=== PATIENT | female | born 1985 | race Caucasian/White ===

== ENCOUNTER 2016-07-17 03:16 | Emergency (ER) | payer OTHER ==
[~2016-07-17] VITALS: Ht 170.2 cm; Wt 113.7 kg
[~2016-07-17 03:16] MED LIST: CLONAZEPAM0.5 MG PO; ENDOCET 5-3251 EACH PO; HYDROCODON-ACE1 EAC7 PO; IBUPROFEN800 MG PO; NORCO 5/3251 TABLET PO; PRENATAL TABLE1 EAC3 PO; VENLAFAXINE HCL75 M3 PO; ZOFRAN4 MG PO
[2016-07-17 03:19] VITALS: BP 138/81
[2016-07-17 03:48] LABS: HEMATOCRIT 34.1 % (36.0-46.0); MCHC 32.8 G/DL (30.0-36.0); MCV 85.3 FL (83-99); MEAN PLAT.VOLUME 9.3 uM^3 (9.5-12.4); PLATELET COUNT 274 K/uL (156-360); RBC DIS.WIDTH-CV 14.8 % (11.8-14.6); RBC DIS.WIDTH-SD 46.2 % (39-53); WHITE BLOOD COUNT 12.2 K/uL (4.1-10.2)
[2016-07-17 03:58] LABS: CHLORIDE 106 mEq/L (99-109); POTASSIUM 3.6 mEq/L (3.7-5.4); SODIUM 136 mEq/L (136-147)
[2016-07-17 04:01] LABS: GLUCOSE 98 mg/dL (70-99)
[2016-07-17 04:02] LABS: ANION GAP 10 MEQ/L (2-14)
[2016-07-17 04:03] LABS: TOTAL BILIRUBIN 0.2 mg/dL (0.0-1.0)
[2016-07-17 04:04] LABS: ALKALINE PHOSPHATASE 143 IU/L (3-129); GFR ESTIMATE (CALCULATED) > 59 mL/min/
[2016-07-17 04:05] LABS: UREA NITROGEN (BUN) 9 mg/dL (9-23)
[2016-07-17 04:11] LABS: ADD MIUA? YES; BILIRUBIN NEGATIVE; BLOOD SMALL; COLOR AMBER ((YELLOW)); GLUCOSE (STRIP) NEGATIVE; KETONES 5; LEUKOCYTES TRACE; NITRITE NEGATIVE; PROTEIN (STRIP) 100; SPECIFIC GRAVITY 1.027 (1.000-1.030); UROBILINOGEN 0.2 MG/DL (0.2-1.0)
[2016-07-17 04:13] LABS: QUANTITATIVE HCG 6068.9 MIU/ML
[2016-07-17 04:38] LABS: RED BLOOD CELLS 0-5 /HPF (0-5)
[2016-07-17 04:39] LABS: BACTERIA 1+ /HPF; EPITHELIAL CELLS 3+ /HPF; MUCUS 2+ /LPF; UCUL ADDED? NO
== END 2016-07-17 05:31 | disposition left against medical advice (07) ==
LOC: EME 03:16
DX: O26.92 Pregnancy related conditions, unspecified, second trimester (principal); Z53.21 Procedure and treatment not carried out due to patient leaving prior to being seen by health care provider; R11.10 Vomiting, unspecified; R19.7 Diarrhea, unspecified; R42 Dizziness and giddiness; Z3A.22 22 weeks gestation of pregnancy
CPT/HCPCS: 80053; 81003; 84702; 85027

== ENCOUNTER 2016-11-09 22:30 | Outpatient (CLI) | payer OTHER ==
[~2016-11-09] VITALS: Ht 170.2 cm; Wt 123.4 kg
[2016-11-09 22:50] VITALS: BP 116/59
[2016-11-10 00:31] LABS: ADD MIUA? YES; BILIRUBIN NEGATIVE; BLOOD SMALL; COLOR YELLOW ((YELLOW)); GLUCOSE (STRIP) NEGATIVE; KETONES NEGATIVE; LEUKOCYTES NEGATIVE; NITRITE NEGATIVE; PROTEIN (STRIP) NEGATIVE; SPECIFIC GRAVITY 1.009 (1.000-1.030); UROBILINOGEN 0.2 MG/DL (0.2-1.0)
[2016-11-10 00:38] LABS: BACTERIA RARE /HPF; EPITHELIAL CELLS RARE /HPF; MUCUS TRACE /LPF; RED BLOOD CELLS 0-5 /HPF (0-5); WHITE BLOOD CELLS 0-5 /HPF (0-5)
== END 2016-11-10 00:11 | disposition home or self-care (01) ==
LOC: LDRP-OP → 2WEST 22:31 → LDRP-OP 12-24 16:43
PROVIDERS: Advanced Practice Midwife
DX: O26.893 Other specified pregnancy related conditions, third trimester (principal); K62.89 Other specified diseases of anus and rectum; Z3A.38 38 weeks gestation of pregnancy
CPT/HCPCS: 59025; 81003; 87086; G0378

== ENCOUNTER 2016-11-17 07:23 | Inpatient (IN) | payer OTHER ==
[~2016-11-17] VITALS: Ht 170.2 cm; Wt 132.0 kg
[2016-11-17] VITALS (25 sets, daily range): BP systolic 90–141; BP diastolic 48–81
[2016-11-17 09:48] LABS: EOSINOPHIL (%) 0.9 % (0-5); EOSINOPHIL COUNT 0.1 K/uL (0-0.3); HEMATOCRIT 29.7 % (36.0-46.0); IMMATURE GRANULOCYTE (%) 0.6 % (0.0-0.7); IMMATURE GRANULOCYTE COUNT 0.1 K/uL; LYMPHOCYTE COUNT 1.2 K/uL (1.0-2.8); MCH 23.5 PG (29.0-34.0); MCHC 30.6 G/DL (30.0-36.0); MCV 76.7 FL (83-99); MEAN PLAT.VOLUME 10.8 uM^3 (9.5-12.4); MONOCYTE (%) 5.4 % (3-12); MONOCYTE COUNT 0.5 K/uL (0-0.8); PLATELET COUNT 226 K/uL (156-360); RBC DIS.WIDTH-CV 16.2 % (11.8-14.6); RBC DIS.WIDTH-SD 45.1 % (39-53); RED BLOOD COUNT 3.87 M/uL (3.80-5.20); WHITE BLOOD COUNT 8.8 K/uL (4.1-10.2)
[2016-11-18] VITALS (11 sets, daily range): BP systolic 108–155; BP diastolic 49–80
[2016-11-19 07:10] VITALS: BP 127/67
[2016-11-19 07:26] LABS: EOSINOPHIL (%) 1.6 % (0-5); EOSINOPHIL COUNT 0.2 K/uL (0-0.3); HEMATOCRIT 26.7 % (36.0-46.0); IMMATURE GRANULOCYTE (%) 0.5 % (0.0-0.7); IMMATURE GRANULOCYTE COUNT 0.1 K/uL; INSTRUMENT ABS NEUTROPHIL CT 6.9 K/uL; LYMPHOCYTE COUNT 1.6 K/uL (1.0-2.8); MCH 24.6 PG (29.0-34.0); MCHC 31.5 G/DL (30.0-36.0); MCV 78.3 FL (83-99); MEAN PLAT.VOLUME 10.9 uM^3 (9.5-12.4); MONOCYTE (%) 5.9 % (3-12); MONOCYTE COUNT 0.5 K/uL (0-0.8); NEUTROPHIL (%) 74.7 % (45-76); NEUTROPHIL COUNT 6.9 K/uL (1.8-6.4); PLATELET COUNT 204 K/uL (156-360); RBC DIS.WIDTH-CV 16.7 % (11.8-14.6); RBC DIS.WIDTH-SD 47.4 % (39-53); RED BLOOD COUNT 3.41 M/uL (3.80-5.20); WHITE BLOOD COUNT 9.2 K/uL (4.1-10.2)
[2016-11-19 14:05] VITALS: BP 165/74
== END 2016-11-19 18:55 | disposition home or self-care (01) | DRG 775 ==
LOC: LDRP-OP 07:23 → 2WEST 07:24 → LDRP-OP 22:21 → 2WEST 11-18 00:59 → LDRP-OP 12-24 00:24
PROVIDERS: Advanced Practice Midwife; Obstetrics & Gynecology Obstetrics
PROC: 10907ZC Drainage of Amniotic Fluid, Therapeutic from Products of Conception, Via Natural or Artificial Opening (ICD-10-PCS; principal; 2016-11-17)
PROC: 3E0P7GC Introduction of Other Therapeutic Substance into Female Reproductive, Via Natural or Artificial Opening (ICD-10-PCS; principal; 2016-11-17)
PROC: 00HU33Z Insertion of Infusion Device into Spinal Canal, Percutaneous Approach (ICD-10-PCS; principal; 2016-11-17)
PROC: 3E0S3CZ (ICD-10-PCS; principal; 2016-11-17)
PROC: 3E033VJ Introduction of Other Hormone into Peripheral Vein, Percutaneous Approach (ICD-10-PCS; principal; 2016-11-17)
PROC: 10E0XZZ Delivery of Products of Conception, External Approach (ICD-10-PCS; 2016-11-18)
PROC: 0HQ9XZZ Repair Perineum Skin, External Approach (ICD-10-PCS; 2016-11-18)
DX: O70.0 First degree perineal laceration during delivery (principal); D62 Acute posthemorrhagic anemia; O99.02 Anemia complicating childbirth; O99.214 Obesity complicating childbirth; D50.9 Iron deficiency anemia, unspecified; E66.9 Obesity, unspecified; O34.13 Maternal care for benign tumor of corpus uteri, third trimester; Z3A.39 39 weeks gestation of pregnancy; Z68.34 Body mass index [BMI] 34.0-34.9, adult; Z37.0 Single live birth; O76 Abnormality in fetal heart rate and rhythm complicating labor and delivery; D25.9 Leiomyoma of uterus, unspecified; O66.0 Obstructed labor due to shoulder dystocia
CPT/HCPCS: 85025; C1755; G0378; J2405; J3010; J7120

== ENCOUNTER 2017-02-27 05:34 | Day surgery (SDC) | payer OTHER ==
[~2017-02-27] VITALS: Ht 170.2 cm; Wt 107.0 kg
[2017-02-27 06:31] VITALS: BP 116/59
[2017-02-27] MEDS ORDERED: ENDOCET 5-3251 EACH PO (08:21)
[2017-02-27 09:35] VITALS: BP 102/59
[2017-02-27 10:05] VITALS: BP 110/62
== END 2017-02-27 10:00 | disposition home or self-care (01) ==
LOC: SDC
PROC: 0U574ZZ Destruction of Bilateral Fallopian Tubes, Percutaneous Endoscopic Approach (ICD-10-PCS; principal; 2017-02-27)
DX: Z30.2 Encounter for sterilization (principal); D25.2 Subserosal leiomyoma of uterus; F41.9 Anxiety disorder, unspecified; Z82.49 Family history of ischemic heart disease and other diseases of the circulatory system; Z80.3 Family history of malignant neoplasm of breast; Z83.49 Family history of other endocrine, nutritional and metabolic diseases; Z83.3 Family history of diabetes mellitus; Z80.1 Family history of malignant neoplasm of trachea, bronchus and lung; Z88.0 Allergy status to penicillin
CPT/HCPCS: J0131; J1100; J1885; J2250; J2405; J2710; J3010; S0020